=== PATIENT | female | born 1970 | race Caucasian/White ===

== ENCOUNTER 2017-11-08 17:35 | Emergency (ER) | payer OTHER ==
[~2017-11-08] VITALS: Ht 162.6 cm; Wt 125.1 kg
[~2017-11-08 17:35] MED LIST: ASPIR-LOW81 MG PO; CALCIUM500 M3 PO; CALICUM 500+D1 EACH PO; DULERA 200 MCG/13 GM IH; EFFEXOR XR150 MG PO; FAMOTIDINE20 MG PO; FUROSEMIDE20 MG PO; GLUCOPHAGE XR500 MG PO; JANUVIA100 MG PO; LINZESS145 MCG PO; LYRICA75 MG PO; METFORMIN HCL1000 M1 PO; METFORMIN HCL500 MG PO; METOPROLOL SUC100 MG PO; METOPROLOL SUCC50 MG PO; MINERAL OIL; MULTIVITAMIN1 EAC2 PO; MULTIVITAMINS1 EA11 PO; NAPROSYN500 MG PO; OXYBUTYNIN CHLO10 MG PO; PREMARIN0.625 MG; PROZAC20 MG PO; RANITIDINE HCL150 MG PO; TOPAMAX200 MG PO; TOPROL XL100 MG PO; ULTRAM50 MG PO; VALIUM5 MG PO; VENLAFAXINE HC150 M1 PO; ZANTAC150 MG PO; ZITHROMAX Z-PA250 MG PO; ZYRTEC10 M2 PO; [UNRECOGNIZED DRUG - OTHER] PO
[2017-11-08 18:05] LABS: HEMATOCRIT 42.8 % (36.0-46.0); HEMOGLOBIN 14.3 G/DL (11.9-15.5); MCH 30.6 PG (29.0-34.0); MCHC 33.4 G/DL (30.0-36.0); MCV 91.5 FL (83-99); PLATELET COUNT 372 K/uL (156-360); RBC DIS.WIDTH-CV 13.7 % (11.8-14.6); RED BLOOD COUNT 4.68 M/uL (3.80-5.20); WHITE BLOOD COUNT 22.6 K/uL (4.1-10.2)
[2017-11-08 18:16] LABS: CHLORIDE 109 mEq/L (99-109); POTASSIUM 3.3 mEq/L (3.7-5.4); SODIUM 137 mEq/L (136-147)
[2017-11-08 18:17] LABS: GLUCOSE 201 mg/dL (70-99)
[2017-11-08 18:21] LABS: CREATININE 0.9 mg/dL (0.6-1.3); GFR ESTIMATE (CALCULATED) > 59 mL/min/
[2017-11-08 18:22] LABS: UREA NITROGEN (BUN) 8 mg/dL (9-23)
[2017-11-08 18:25] LABS: TROP-I INTERPRETATION NEGATIVE; TROPONIN-I < 0.01 ng/mL (0.0-0.30)
[2017-11-08] MEDS ORDERED: ZITHROMAX Z-PA250 MG PO (22:10)
[2017-11-08 23:20] VITALS: BP 101/74
== END 2017-11-08 23:24 | disposition home or self-care (01) ==
LOC: EME 17:35
PROVIDERS: Emergency Medicine
DX: J18.9 Pneumonia, unspecified organism (principal); M79.7 Fibromyalgia; F41.9 Anxiety disorder, unspecified; R73.03 Prediabetes; Z87.891 Personal history of nicotine dependence; Z90.710 Acquired absence of both cervix and uterus; Z85.41 Personal history of malignant neoplasm of cervix uteri; Z88.8 Allergy status to other drugs, medicaments and biological substances
CPT/HCPCS: 71020; 71275; 80048; 83605; 84484; 85027; 87040; 87502; 93005; 99281; 99285; J0696; J1940; J7030

== ENCOUNTER 2018-02-15 11:57 | Emergency (ER) | payer OTHER ==
[~2018-02-15] VITALS: Ht 162.6 cm; Wt 122.7 kg
[2018-02-15 16:16] VITALS: BP 147/90
== END 2018-02-15 16:17 | disposition home or self-care (01) ==
LOC: EME 11:57
DX: M62.838 Other muscle spasm (principal); M79.661 Pain in right lower leg; D68.2 Hereditary deficiency of other clotting factors; E11.9 Type 2 diabetes mellitus without complications; F41.9 Anxiety disorder, unspecified; Z90.710 Acquired absence of both cervix and uterus; Z85.41 Personal history of malignant neoplasm of cervix uteri; Z87.891 Personal history of nicotine dependence
CPT/HCPCS: 93971; 99281; 99283

== ENCOUNTER 2018-04-03 20:39 | Emergency (ER) | payer OTHER ==
[~2018-04-03] VITALS: Ht 162.6 cm; Wt 121.8 kg
[2018-04-03 21:35] LABS: HEMATOCRIT 45.5 % (36.0-46.0); HEMOGLOBIN 15.5 G/DL (11.9-15.5); MCH 30.8 PG (29.0-34.0); MCHC 34.1 G/DL (30.0-36.0); MCV 90.3 FL (83-99); PLATELET COUNT 391 K/uL (156-360); RBC DIS.WIDTH-CV 13.5 % (11.8-14.6); RBC DIS.WIDTH-SD 44.5 % (39-53); RED BLOOD COUNT 5.04 M/uL (3.80-5.20); WHITE BLOOD COUNT 15.7 K/uL (4.1-10.2)
[2018-04-03 21:49] LABS: CHLORIDE 108 mEq/L (99-109); POTASSIUM 3.3 mEq/L (3.7-5.4); SODIUM 140 mEq/L (136-147)
[2018-04-03 21:51] LABS: GLUCOSE 121 mg/dL (70-99)
[2018-04-03 21:55] LABS: GFR ESTIMATE (CALCULATED) > 59 mL/min/
[2018-04-03 21:56] LABS: UREA NITROGEN (BUN) 9 mg/dL (9-23)
[2018-04-03 22:01] LABS: TROP-I INTERPRETATION NEGATIVE; TROPONIN-I < 0.01 ng/mL (0.0-0.30)
[2018-04-04 01:08] LABS: TROP-I INTERPRETATION NEGATIVE; TROPONIN-I < 0.01 ng/mL (0.0-0.30)
[2018-04-04 01:10] VITALS: BP 129/91
[2018-04-04] MEDS ORDERED: ZOFRAN4 MG PO (01:10)
== END 2018-04-04 01:14 | disposition home or self-care (01) ==
LOC: EME 20:39
PROVIDERS: Nurse Practitioner Family
DX: R06.02 Shortness of breath (principal); M54.6 Pain in thoracic spine; D72.829 Elevated white blood cell count, unspecified; R42 Dizziness and giddiness; J45.909 Unspecified asthma, uncomplicated; Z85.41 Personal history of malignant neoplasm of cervix uteri; Z90.710 Acquired absence of both cervix and uterus; Z90.49 Acquired absence of other specified parts of digestive tract; Z87.891 Personal history of nicotine dependence
CPT/HCPCS: 71046; 71275; 80048; 84484; 85027; 93005; 99281; 99285; J7120